=== PATIENT | female | born 1955 | race Caucasian/White ===

== ENCOUNTER 2019-07-15 08:47 | Inpatient (IN) ==
[2019-07-15] MEDS ORDERED: 0.9 % Sodium Chloride 1,000 ML IVC ONE (09:23)
[2019-07-15] MEDS ORDERED: Isovue-370 500 ML BOTTLE IVP ONE (09:23)
[2019-07-15] MEDS ORDERED: *HR* FentaNYL (PF) 100 MCG/2 ML VIAL IVP ONE (09:23)
[2019-07-15] MEDS ORDERED: MetroNIDAZOLE 500 MG/100 ML 500 MG/100 ML BAG IVPB ONE (09:24)
[2019-07-15 09:40] LABS: Basophils % 0.3 %; Eosinophils % 0.1 %; Immature Granulocytes % 0.5 % (0-4); Lymphocytes # 1.4 K/mcL (0.6-4.6); Lymphocytes % 11.8 %; Mean Corpuscular HGB Conc 34.7 g/dL (31.6-35.5); Mean Corpuscular Hemoglobin 31.7 pg (28.0-33.3); Mean Corpuscular Volume 91.3 fL (83.0-100.0); Mean Platelet Volume 9.4 fL (9.4-12.4); Monocytes # 0.9 K/mcL (0.0-1.3); Monocytes % 7.3 %; Neutrophils # 9.4 K/mcL (1.6-8.9); Platelet Count 284 K/mcL (140-400); Red Blood Count 5.15 M/mcL (3.82-4.97); Red Cell Distribution Width 12.6 % (11.5-14.5)
[2019-07-15 09:44] LABS: Hemoglobin 16.3 g/dL (11.5-15.4); White Blood Count 11.7 K/mcL (4.3-11.1)
[2019-07-15 10:18] LABS: Bilirubin,Urine Moderate (Negative); Blood,Urine Large (Negative); Clarity,Urine Cloudy (Clear); Color,Urine Dark Yellow (Yellow); Glucose,Urine (UA) Normal (Normal); Ketones,Urine 40 mg/dL (Negative); Leukocyte Esterase,Urine Negative (Negative); Nitrite,Urine Negative (Negative); PH,Urine 6.5 pH Units (5.0-8.0); Protein,Urine >=300 mg/dL (Neg-Trace); Specific Gravity,Urine 1.027 (1.010-1.025); Urobilinogen,Urine Normal (Normal)
[2019-07-15 10:38] LABS: Bacteria,Urine Few per hpf (None-Few)
[2019-07-15 10:39] LABS: Squamous Epithelial Cell,Urine Many per lpf (None-Few)
[2019-07-15 11:06] LABS: Alanine Aminotransferase 7 Units/L (7-52); Albumin 3.9 g/dL (3.5-5.7); Albumin/Globulin Ratio 1.4 (1.1-2.2); Alkaline Phosphatase 58 Units/L (34-104); Aspartate Amino Transferase 15 Units/L (13-39); BUN/Creatinine Ratio 21 (6-26); Bilirubin,Total 0.9 mg/dL (0.3-1.0); Blood Urea Nitrogen 16 mg/dL (8-23); Carbon Dioxide 25 mEq/L (23-29); Chloride 95 mEq/L (98-107); Globulin 2.7 g/dL (2.4-3.5); Glucose 113 mg/dL (70-105); Lipase 18 Units/L (11-82); Osmolality,Calculated 276 (280-300); Potassium 2.5 mEq/L (3.5-5.1); Sodium 132 mEq/L (136-145); Total Protein 6.6 g/dL (6.4-8.9); eGFR For African Americans > 60 (> 60); eGFR For Non-African Americans > 60 (> 60)
[2019-07-15] MEDS ORDERED: Potassium Chloride 40 MEQ, Lidocaine 1% 2 ML in 0.9 % Sodium Chloride 500 ML IVPB ONE (11:09)
[2019-07-15] MEDS ORDERED: Ondansetron 4 MG/2 ML VIAL IVP ONE (11:43)
[2019-07-15] MEDS ORDERED: Naloxone 0.4 MG/ML INJ IVP PRN (13:34)
[2019-07-15] MEDS ORDERED: *HR* LORazepam 0.5 MG TABLET PO PRN (13:37)
[2019-07-15] MEDS ORDERED: tiZANidine 4 MG TABLET PO PRN (13:37)
[2019-07-15] MEDS ORDERED: Pantoprazole 40 MG VIAL IVP ONE (13:39)
[2019-07-15 15:23] LABS: Magnesium 1.9 mg/dL (1.6-2.6)
[2019-07-15] MEDS: 0.9 % Sodium Chloride w KCl 40 MEQ/1,000 ML MLS IVC SCH (16:14)
[2019-07-15] MEDS: MetroNIDAZOLE 500 MG/100 ML 500 MG/100 ML BAG IVPB SCH (20:08)
[2019-07-15] MEDS: Gabapentin 300 MG CAPSULE PO SCH (21:15)
[2019-07-15] MEDS: Budesonide/Formoterol 160/4.5 1 PUFF INH IH SCH (21:45)
[2019-07-15] MEDS: traZODone 50 MG TABLET PO SCH (21:53)
[2019-07-15] MEDS: Famotidine 20 MG TABLET PO SCH (21:53)
[2019-07-15] MEDS: Sucralfate 1 GM TABLET PO SCH (21:53)
[2019-07-15] MEDS: Ondansetron 4 MG/2 ML VIAL IVP PRN (23:10)
[2019-07-16] MEDS: MetroNIDAZOLE 500 MG/100 ML 500 MG/100 ML BAG IVPB SCH ×4 (00:05→18:27)
[2019-07-16 05:12] LABS: Basophils % 0.1 %; Eosinophils % 0.1 %; Hematocrit 40.5 % (35.3-44.9); Immature Granulocytes % 0.4 % (0-4); Lymphocytes # 1.1 K/mcL (0.6-4.6); Lymphocytes % 13.9 %; Mean Corpuscular HGB Conc 33.8 g/dL (31.6-35.5); Mean Corpuscular Volume 91.6 fL (83.0-100.0); Mean Platelet Volume 9.6 fL (9.4-12.4); Monocytes # 0.5 K/mcL (0.0-1.3); Monocytes % 6.6 %; Neutrophils # 6.3 K/mcL (1.6-8.9); Platelet Count 212 K/mcL (140-400); Red Blood Count 4.42 M/mcL (3.82-4.97); Red Cell Distribution Width 12.7 % (11.5-14.5); Segmented Neutrophils % 78.9 %; White Blood Count 7.9 K/mcL (4.3-11.1)
[2019-07-16] MEDS: 0.9 % Sodium Chloride w KCl 40 MEQ/1,000 ML MLS IVC SCH (05:14)
[2019-07-16] MEDS: Ondansetron 4 MG/2 ML VIAL IVP PRN (05:14)
[2019-07-16 05:19] LABS: Hemoglobin 13.7 g/dL (11.5-15.4)
[2019-07-16 05:33] LABS: BUN/Creatinine Ratio 18 (6-26); Blood Urea Nitrogen 11 mg/dL (8-23); Calcium 8.3 mg/dL (8.6-10.3); Carbon Dioxide 22 mEq/L (23-29); Chloride 100 mEq/L (98-107); Glucose 103 mg/dL (70-105); Osmolality,Calculated 274 (280-300); Potassium 3.1 mEq/L (3.5-5.1); Sodium 132 mEq/L (136-145); eGFR For African Americans > 60 (> 60); eGFR For Non-African Americans > 60 (> 60)
[2019-07-16] MEDS: *HR* Promethazine 25 MG/ML VIAL IVP PRN ×2 (08:56→20:50)
[2019-07-16] MEDS: *HR* LORazepam 2 MG/ML VIAL IVP PRN ×2 (08:56→20:50)
[2019-07-16 09:02] LABS: Alanine Aminotransferase 6 Units/L (7-52); Albumin 3.6 g/dL (3.5-5.7); Albumin/Globulin Ratio 1.6 (1.1-2.2); Alkaline Phosphatase 55 Units/L (34-104); Aspartate Amino Transferase 14 Units/L (13-39); Bilirubin,Direct 0.1 mg/dL (0.0-0.2); Bilirubin,Indirect 0.6 mg/dL (0.0-1.2); Bilirubin,Total 0.7 mg/dL (0.3-1.0); Globulin 2.3 g/dL (2.4-3.5); Total Protein 5.9 g/dL (6.4-8.9)
[2019-07-16] MEDS: Budesonide/Formoterol 160/4.5 1 PUFF INH IH SCH ×2 (09:56→21:54)
[2019-07-16] MEDS ORDERED: Tiotropium 18 MCG inhalation IH SCH (10:00)
[2019-07-16] MEDS: Sucralfate 1 GM TABLET PO SCH ×2 (13:02→20:40)
[2019-07-16] MEDS: Gabapentin 300 MG CAPSULE PO SCH ×3 (13:02→20:39)
[2019-07-16] MEDS: BuPROPion XL (24 HR) 150 MG TABLET PO SCH (13:03)
[2019-07-16] MEDS: Famotidine 20 MG TABLET PO SCH ×2 (13:03→20:41)
[2019-07-16] MEDS ORDERED: Potassium Chloride 40 MEQ, Lidocaine 1% 2 ML in 0.9 % Sodium Chloride 500 ML IVPB ONE (15:54)
[2019-07-16] MEDS: traZODone 50 MG TABLET PO SCH (20:39)
[2019-07-17] MEDS: MetroNIDAZOLE 500 MG/100 ML 500 MG/100 ML BAG IVPB SCH ×5 (00:37→23:10)
[2019-07-17] MEDS: *HR* LORazepam 2 MG/ML VIAL IVP PRN ×2 (06:20→21:07)
[2019-07-17 06:23] LABS: Hematocrit 39.9 % (35.3-44.9); Hemoglobin 13.2 g/dL (11.5-15.4); Mean Corpuscular HGB Conc 33.1 g/dL (31.6-35.5); Mean Corpuscular Hemoglobin 31.5 pg (28.0-33.3); Mean Corpuscular Volume 95.2 fL (83.0-100.0); Mean Platelet Volume 9.8 fL (9.4-12.4); Platelet Count 239 K/mcL (140-400); Red Blood Count 4.19 M/mcL (3.82-4.97); White Blood Count 6.6 K/mcL (4.3-11.1)
[2019-07-17 06:44] LABS: BUN/Creatinine Ratio 11 (6-26); Blood Urea Nitrogen 9 mg/dL (8-23); Calcium 8.9 mg/dL (8.6-10.3); Carbon Dioxide 26 mEq/L (23-29); Chloride 106 mEq/L (98-107); Glucose 100 mg/dL (70-105); Osmolality,Calculated 289 (280-300); Potassium 3.3 mEq/L (3.5-5.1); Sodium 140 mEq/L (136-145); eGFR For African Americans > 60 (> 60); eGFR For Non-African Americans > 60 (> 60)
[2019-07-17] MEDS: Budesonide/Formoterol 160/4.5 1 PUFF INH IH SCH ×2 (07:59→22:22)
[2019-07-17] MEDS: Tiotropium 18 MCG inhalation IH SCH (08:00)
[2019-07-17] MEDS: BuPROPion XL (24 HR) 150 MG TABLET PO SCH (09:57)
[2019-07-17] MEDS: Sucralfate 1 GM TABLET PO SCH ×2 (09:57→21:08)
[2019-07-17] MEDS: Famotidine 20 MG TABLET PO SCH (09:58)
[2019-07-17] MEDS: Gabapentin 300 MG CAPSULE PO SCH ×3 (09:58→21:08)
[2019-07-17] MEDS: *HR* OxyCODONE Immed Rel 5 MG TABLET PO PRN ×2 (10:39→17:03)
[2019-07-17] MEDS: *HR* Heparin 5,000 UNIT/ML VIAL SQ SCH (17:02)
[2019-07-17] MEDS: traZODone 50 MG TABLET PO SCH (21:07)
[2019-07-17] MEDS: Ondansetron 4 MG/2 ML VIAL IVP PRN (21:08)
[2019-07-18] MEDS ORDERED: 0.9 % Sodium Chloride 500 ML IVC ONE (00:32)
[2019-07-18 04:10] LABS: Hematocrit 35.5 % (35.3-44.9); Hemoglobin 11.5 g/dL (11.5-15.4); Mean Corpuscular HGB Conc 32.4 g/dL (31.6-35.5); Mean Corpuscular Hemoglobin 31.9 pg (28.0-33.3); Mean Corpuscular Volume 98.3 fL (83.0-100.0); Mean Platelet Volume 9.8 fL (9.4-12.4); Platelet Count 180 K/mcL (140-400); Red Blood Count 3.61 M/mcL (3.82-4.97); Red Cell Distribution Width 13.2 % (11.5-14.5); White Blood Count 4.8 K/mcL (4.3-11.1)
[2019-07-18 04:28] LABS: BUN/Creatinine Ratio 10 (6-26); Blood Urea Nitrogen 8 mg/dL (8-23); Calcium 8.3 mg/dL (8.6-10.3); Carbon Dioxide 23 mEq/L (23-29); Chloride 112 mEq/L (98-107); Glucose 114 mg/dL (70-105); Osmolality,Calculated 285 (280-300); Potassium 3.9 mEq/L (3.5-5.1); Sodium 138 mEq/L (136-145); eGFR For African Americans > 60 (> 60); eGFR For Non-African Americans > 60 (> 60)
[2019-07-18] MEDS: MetroNIDAZOLE 500 MG/100 ML 500 MG/100 ML BAG IVPB SCH (05:55)
[2019-07-18] MEDS: *HR* Heparin 5,000 UNIT/ML VIAL SQ SCH (05:55)
[2019-07-18] MEDS: Budesonide/Formoterol 160/4.5 1 PUFF INH IH SCH (07:40)
[2019-07-18] MEDS: Tiotropium 18 MCG inhalation IH SCH (07:40)
[2019-07-18] MEDS: Sucralfate 1 GM TABLET PO SCH (08:42)
[2019-07-18] MEDS: BuPROPion XL (24 HR) 150 MG TABLET PO SCH (08:43)
[2019-07-18] MEDS: Gabapentin 300 MG CAPSULE PO SCH (08:43)
[2019-07-18] MEDS: *HR* OxyCODONE Immed Rel 5 MG TABLET PO PRN (08:43)
[2019-07-18 10:49] VITALS: BP 103/65
== END 2019-07-18 11:46 | disposition home or self-care (01) | DRG 392 ==
LOC: 3ANU 08:47 → EMEROOARM 08:47 → SUATTDRO 13:10 → 3ANU 14:39
PROVIDERS: ADMIT Internal Medicine; ATTEND Internal Medicine

== ENCOUNTER 2020-10-13 13:42 | Observation (INO) ==
[2020-10-13 14:32] LABS: Basophils % 0.1 %; Eosinophils % 0.2 %; Hematocrit 42.2 % (35.3-44.9); Hemoglobin 14.4 g/dL (11.5-15.4); Immature Granulocytes % 0.6 % (0-4); Lymphocytes # 0.8 K/mcL (0.6-4.6); Lymphocytes % 6.4 %; Mean Corpuscular HGB Conc 34.1 g/dL (31.6-35.5); Mean Corpuscular Hemoglobin 31.8 pg (28.0-33.3); Mean Corpuscular Volume 93.2 fL (83.0-100.0); Mean Platelet Volume 9.3 fL (9.4-12.4); Monocytes # 0.5 K/mcL (0.0-1.3); Neutrophils # 10.6 K/mcL (1.6-8.9); Platelet Count 317 K/mcL (140-400); Red Blood Count 4.53 M/mcL (3.82-4.97); Red Cell Distribution Width 13.4 % (11.5-14.5); Segmented Neutrophils % 88.7 %
[2020-10-13 14:52] LABS: Alanine Aminotransferase 6 Units/L (7-52); Albumin 4.6 g/dL (3.5-5.7); Albumin/Globulin Ratio 1.4 (1.1-2.2); Alkaline Phosphatase 67 Units/L (34-104); Aspartate Amino Transferase 16 Units/L (13-39); BUN/Creatinine Ratio 20 (6-26); Bilirubin,Direct 0.2 mg/dL (0.0-0.2); Bilirubin,Indirect 0.5 mg/dL (0.0-1.0); Bilirubin,Total 0.7 mg/dL (0.3-1.0); Blood Urea Nitrogen 16 mg/dL (8-23); Calcium 10.2 mg/dL (8.6-10.3); Carbon Dioxide 24 mEq/L (23-29); Chloride 96 mEq/L (98-107); Globulin 3.2 g/dL (2.4-3.5); Glucose 153 mg/dL (70-105); Lipase 9 Units/L (11-82); Osmolality,Calculated 284 (280-300); Potassium 3.2 mEq/L (3.5-5.1); Sodium 135 mEq/L (136-145); Total Protein 7.8 g/dL (6.4-8.9); eGFR For African Americans > 60 (> 60); eGFR For Non-African Americans > 60 (> 60)
[2020-10-13 15:33] LABS: Bacteria,Urine Few per hpf (None-Few); Bilirubin,Urine Negative (Negative); Blood,Urine Moderate (Negative); Clarity,Urine Turbid (Clear); Color,Urine Yellow (Yellow); Glucose,Urine (UA) Normal (Normal); Hyaline Casts,Urine Few per lpf (None Seen); Ketones,Urine 40 mg/dL (Negative); Leukocyte Esterase,Urine Negative (Negative); Mucus,Urine Few per lpf (None-Few); Nitrite,Urine Negative (Negative); PH,Urine 8.5 pH Units (5.0-8.0); Protein,Urine >=600 mg/dL (Neg-Trace); RBC,Urine TNTC per hpf (0-3); Specific Gravity,Urine 1.025 (1.010-1.025); Squamous Epithelial Cell,Urine Moderate per hpf (None-Few); Urobilinogen,Urine Normal (Normal)
[2020-10-13] MEDS ORDERED: Famotidine 20 MG/2 ML VIAL IVP ONE (16:14)
[2020-10-13] MEDS ORDERED: Ondansetron 4 MG/2 ML VIAL IVP ONE (16:14)
[2020-10-13] MEDS ORDERED: 0.9 % Sodium Chloride 1,000 ML IVC ONE (16:14)
[2020-10-13 16:43] LABS: Troponin I 0.06 ng/mL (< 0.04)
[2020-10-13] MEDS ORDERED: *HR* FentaNYL (PF) 100 MCG/2 ML VIAL IVP ONE (19:54)
[2020-10-13] MEDS ORDERED: Aspirin 81 MG TAB.CHEW PO ONE (20:41)
[2020-10-13] MEDS ORDERED: MetroNIDAZOLE 500 MG/100 ML 500 MG/100 ML BAG IVPB ONE (20:44)
[2020-10-13] MEDS ORDERED: Morphine Sulfate 2 MG/ML SYRINGE IVP ONE (22:19)
[2020-10-13] MEDS ORDERED: Naloxone 0.4 MG/ML INJ IVP PRN (22:23)
[2020-10-13] MEDS ORDERED: 0.9 % Sodium Chloride 1,000 ML IVC SCH (22:30)
[2020-10-13] MEDS ORDERED: Potassium Chloride 20 MEQ, Lidocaine 1% 2 ML in 0.9 % Sodium Chloride 250 ML IVPB ONE (23:00)
[2020-10-14] MEDS: Ondansetron 4 MG/2 ML VIAL IVP PRN ×2 (00:05→08:37)
[2020-10-14] MEDS ORDERED: Pantoprazole 80 MG in 0.9 % Sodium Chloride 50 ML IVPB ONE (01:22)
[2020-10-14 02:47] LABS: Hematocrit 38.2 % (35.3-44.9); Hemoglobin 12.9 g/dL (11.5-15.4); Mean Corpuscular HGB Conc 33.8 g/dL (31.6-35.5); Mean Corpuscular Hemoglobin 32.3 pg (28.0-33.3); Mean Corpuscular Volume 95.7 fL (83.0-100.0); Mean Platelet Volume 9.3 fL (9.4-12.4); Platelet Count 279 K/mcL (140-400); Red Blood Count 3.99 M/mcL (3.82-4.97); Red Cell Distribution Width 13.8 % (11.5-14.5)
[2020-10-14 03:07] LABS: BUN/Creatinine Ratio 19 (6-26); Blood Urea Nitrogen 14 mg/dL (8-23); Calcium 8.7 mg/dL (8.6-10.3); Carbon Dioxide 24 mEq/L (23-29); Chloride 104 mEq/L (98-107); Glucose 109 mg/dL (70-105); Osmolality,Calculated 285 (280-300); Potassium 3.2 mEq/L (3.5-5.1); Sodium 137 mEq/L (136-145); eGFR For African Americans > 60 (> 60); eGFR For Non-African Americans > 60 (> 60)
[2020-10-14] MEDS ORDERED: Potassium Chloride 40 MEQ, Lidocaine 1% 2 ML in 0.9 % Sodium Chloride 500 ML IVPB ONE (07:59)
[2020-10-14] MEDS: MetroNIDAZOLE 500 MG/100 ML 500 MG/100 ML BAG IVPB SCH ×2 (08:34→16:58)
[2020-10-14] MEDS: Pantoprazole 40 MG VIAL IVP SCH ×2 (08:35→16:57)
[2020-10-14] MEDS ORDERED: tiZANidine 4 MG TABLET PO PRN (15:02)
[2020-10-14] MEDS: Budesonide/Formoterol 160/4.5 1 PUFF INH IH SCH (19:59)
[2020-10-14] MEDS ORDERED: Famotidine 20 MG/2 ML VIAL IVP SCH (21:00)
[2020-10-14] MEDS ORDERED: Famotidine 20 MG TABLET PO SCH (21:00)
[2020-10-14] MEDS ORDERED: NON-FORMULARY MEDICATION 1 EACH EACH (Pantoprazole Sodium 40 MG) PO SCH (21:00)
[2020-10-14] MEDS ORDERED: traZODone 50 MG TABLET PO SCH (21:00)
[2020-10-14] MEDS: Gabapentin 300 MG CAPSULE PO SCH (21:17)
[2020-10-15] MEDS: MetroNIDAZOLE 500 MG/100 ML 500 MG/100 ML BAG IVPB SCH ×2 (00:40→10:13)
[2020-10-15] MEDS: Pantoprazole 40 MG VIAL IVP SCH (05:30)
[2020-10-15 07:43] LABS: Basophils % 0.4 %; Eosinophils % 0.2 %; Hematocrit 36.4 % (35.3-44.9); Hemoglobin 12.4 g/dL (11.5-15.4); Immature Granulocytes % 0.2 % (0-4); Lymphocytes # 1.3 K/mcL (0.6-4.6); Lymphocytes % 22.3 %; Mean Corpuscular HGB Conc 34.1 g/dL (31.6-35.5); Mean Corpuscular Hemoglobin 32.8 pg (28.0-33.3); Mean Corpuscular Volume 96.3 fL (83.0-100.0); Mean Platelet Volume 9.3 fL (9.4-12.4); Monocytes # 0.4 K/mcL (0.0-1.3); Monocytes % 7.9 %; Neutrophils # 3.9 K/mcL (1.6-8.9); Platelet Count 240 K/mcL (140-400); Red Blood Count 3.78 M/mcL (3.82-4.97); Red Cell Distribution Width 13.7 % (11.5-14.5)
[2020-10-15 07:49] LABS: White Blood Count 5.6 K/mcL (4.3-11.1)
[2020-10-15 07:53] VITALS: BP 125/63
[2020-10-15 07:57] LABS: BUN/Creatinine Ratio 13 (6-26); Blood Urea Nitrogen 10 mg/dL (8-23); Calcium 8.8 mg/dL (8.6-10.3); Carbon Dioxide 21 mEq/L (23-29); Chloride 105 mEq/L (98-107); Glucose 93 mg/dL (70-105); Osmolality,Calculated 281 (280-300); Potassium 3.1 mEq/L (3.5-5.1); Sodium 136 mEq/L (136-145); eGFR For African Americans > 60 (> 60); eGFR For Non-African Americans > 60 (> 60)
[2020-10-15] MEDS: Budesonide/Formoterol 160/4.5 1 PUFF INH IH SCH (08:29)
[2020-10-15] MEDS ORDERED: Tiotropium 10 INH DOSE IH SCH (09:00)
[2020-10-15] MEDS ORDERED: BuPROPion XL (24 HR) 150 MG TABLET PO SCH (09:00)
[2020-10-15] MEDS: Gabapentin 300 MG CAPSULE PO SCH ×2 (10:14→10:21)
== END 2020-10-15 12:34 | disposition home or self-care (01) ==
LOC: EMEROOARM 13:42 → 3ANU 13:42 → SUATTDRO 22:19 → 3ANU 22:25
PROVIDERS: ADMIT Internal Medicine; ATTEND Family Medicine
PROC: ENDOEBX (2020-10-14 13:30)

== ENCOUNTER 2022-03-14 14:41 | Observation (INO) ==
[2022-03-14 15:52] LABS: Bacteria,Urine Few per hpf (None-Few); Bilirubin,Urine Negative (Negative); Blood,Urine Moderate (Negative); Clarity,Urine Clear (Clear); Color,Urine Yellow (Yellow); Glucose,Urine (UA) Normal (Normal); Ketones,Urine Negative (Negative); Leukocyte Esterase,Urine Negative (Negative); Nitrite,Urine Negative (Negative); Protein,Urine Trace mg/dL (Neg-Trace); Specific Gravity,Urine 1.012 (1.010-1.025); Squamous Epithelial Cell,Urine Moderate per hpf (None-Few); Urobilinogen,Urine Normal (Normal); WBC,Urine 0-3 per hpf (0-3)
[2022-03-14 15:53] LABS: Basophils % 0.1 %; Eosinophils % 0.1 %; Hematocrit 43.5 % (35.3-44.9); Hemoglobin 15.4 g/dL (11.5-15.4); Immature Granulocytes % 0.5 % (0-4); Lymphocytes # 1.2 K/mcL (0.6-4.6); Lymphocytes % 10.9 %; Mean Corpuscular HGB Conc 35.4 g/dL (31.6-35.5); Mean Corpuscular Hemoglobin 31.4 pg (28.0-33.3); Mean Corpuscular Volume 88.8 fL (83.0-100.0); Mean Platelet Volume 9.1 fL (9.4-12.4); Monocytes # 0.6 K/mcL (0.0-1.3); Monocytes % 5.3 %; Neutrophils # 9.1 K/mcL (1.6-8.9); Platelet Count 380 K/mcL (140-400); Red Cell Distribution Width 12.3 % (11.5-14.5); Segmented Neutrophils % 83.1 %
[2022-03-14 16:19] LABS: BUN/Creatinine Ratio 10 (6-26); Blood Urea Nitrogen 8 mg/dL (8-23); Calcium 9.3 mg/dL (8.6-10.3); Carbon Dioxide 31 mEq/L (23-29); Chloride 90 mEq/L (98-107); Glucose 116 mg/dL (70-105); Osmolality,Calculated 271 (280-300); Potassium 2.3 mEq/L (3.5-5.1); Sodium 131 mEq/L (136-145); eGFR For African Americans > 60 (> 60); eGFR For Non-African Americans > 60 (> 60)
[2022-03-14] MEDS ORDERED: Ondansetron 4 MG/2 ML VIAL IVP ONE (18:27)
[2022-03-14] MEDS ORDERED: Morphine Sulfate 2 MG/ML SYRINGE IVP ONE (18:27)
[2022-03-14] MEDS ORDERED: Iopamidol - 370 500 ML MLS IVP ONE (18:42)
[2022-03-14] MEDS ORDERED: 0.9 % Sodium Chloride 500 ML IVC ONE (18:45)
[2022-03-14] MEDS ORDERED: Melatonin 3 MG TABLET PO PRN (20:41)
[2022-03-14] MEDS ORDERED: *HR* HYDROcodone/Acet 5/325 mg TABLET PO PRN (20:41)
[2022-03-14] MEDS ORDERED: Naloxone 0.4 MG/ML INJ IVP PRN (20:41)
[2022-03-14] MEDS ORDERED: Pantoprazole 40 MG VIAL IVP ONE (21:19)
[2022-03-14] MEDS ORDERED: *HR* Dextrose 50 % in Water (Syg) 50 ML SYRINGE IVP PRN (21:33)
[2022-03-14] MEDS ORDERED: D5% in Water 1,000 ML IVC PRN (21:33)
[2022-03-14] MEDS ORDERED: Dextrose Gel 15 GM/37.5 ML TUBE PO PRN ×2 (21:33)
[2022-03-14] MEDS: 0.9 % Sodium Chloride w KCl 20 MEQ/1,000 ML MLS IVC SCH (22:08)
[2022-03-14] MEDS: Budesonide/Formoterol 160/4.5 1 PUFF INH IH SCH (23:47)
[2022-03-14] MEDS: Ipratropium/Albuterol Neb 3 ML IH SCH (23:48)
[2022-03-15] MEDS: Ipratropium/Albuterol Neb 3 ML IH SCH ×5 (04:17→20:12)
[2022-03-15 05:04] LABS: Basophils % 0.1 %; Eosinophils % 0.3 %; Hematocrit 38.6 % (35.3-44.9); Immature Granulocytes % 0.3 % (0-4); Lymphocytes # 1.9 K/mcL (0.6-4.6); Lymphocytes % 21.9 %; Mean Corpuscular HGB Conc 33.9 g/dL (31.6-35.5); Mean Corpuscular Hemoglobin 30.9 pg (28.0-33.3); Mean Platelet Volume 9.2 fL (9.4-12.4); Monocytes # 0.5 K/mcL (0.0-1.3); Monocytes % 5.8 %; Neutrophils # 6.2 K/mcL (1.6-8.9); Platelet Count 298 K/mcL (140-400); Red Blood Count 4.24 M/mcL (3.82-4.97); Red Cell Distribution Width 12.6 % (11.5-14.5); Segmented Neutrophils % 71.6 %; White Blood Count 8.7 K/mcL (4.3-11.1)
[2022-03-15 05:05] LABS: Hemoglobin 13.1 g/dL (11.5-15.4)
[2022-03-15 05:08] LABS: INR 1.1; Prothrombin Time 11.9 Seconds (9.4-12.1)
[2022-03-15 05:11] LABS: Activated Partial Thrombo Time 28.7 Seconds (26.0-36.0)
[2022-03-15 05:19] LABS: Alanine Aminotransferase 14 Units/L (7-52); Albumin 3.4 g/dL (3.5-5.7); Albumin/Globulin Ratio 1.6 (1.1-2.2); Alkaline Phosphatase 51 Units/L (34-104); Aspartate Amino Transferase 29 Units/L (13-39); BUN/Creatinine Ratio 9 (6-26); Bilirubin,Total 0.6 mg/dL (0.3-1.0); Blood Urea Nitrogen 8 mg/dL (8-23); Calcium 8.6 mg/dL (8.6-10.3); Carbon Dioxide 31 mEq/L (23-29); Chloride 94 mEq/L (98-107); Globulin 2.1 g/dL (2.4-3.5); Glucose 104 mg/dL (70-105); Magnesium 2.2 mg/dL (1.6-2.6); Osmolality,Calculated 273 (280-300); Phosphorous 2.4 mg/dL (2.7-4.5); Potassium 2.8 mEq/L (3.5-5.1); Sodium 132 mEq/L (136-145); Total Protein 5.5 g/dL (6.4-8.9); eGFR For African Americans > 60 (> 60); eGFR For Non-African Americans > 60 (> 60)
[2022-03-15] MEDS ORDERED: Potassium Chloride Elixir 20 MEQ/15 ML UDC PO ONE (05:48)
[2022-03-15] MEDS: *HR* Enoxaparin 40 MG/0.4 ML SYRINGE SQ SCH (05:58)
[2022-03-15] MEDS: Budesonide/Formoterol 160/4.5 1 PUFF INH IH SCH ×2 (07:30→20:12)
[2022-03-15] MEDS: polyethylene glycoL 3350 17 GM POWD.PACK PO SCH (08:34)
[2022-03-15] MEDS: Nicotine 21 MG PATCH.TD24 TD SCH (08:35)
[2022-03-15] MEDS: BuPROPion XL (24 HR) 150 MG TABLET PO SCH (08:36)
[2022-03-15] MEDS: Sennosides/Docusate Sodium TABLET PO SCH ×2 (08:36→20:06)
[2022-03-15] MEDS: Acetaminophen 325 MG TABLET PO PRN ×2 (09:00→20:06)
[2022-03-15] MEDS: Ondansetron 4 MG/2 ML VIAL IVP PRN ×2 (09:01→20:06)
[2022-03-15 10:36] LABS: Troponin I < 0.03 ng/mL (< 0.04)
[2022-03-15] MEDS: 0.9 % Sodium Chloride w KCl 20 MEQ/1,000 ML MLS IVC SCH (10:54)
[2022-03-15 11:54] LABS: Amphetamine Screen,Urine Negative ng/mL (Cutoff=1000); Barbiturate Screen,Urine Negative ng/mL (Cutoff=200); Benzodiazepines Screen,Urine Negative ng/mL (Cutoff=200); Cannabinoid Screen,Urine Positive ng/mL (Cutoff = 50); Cocaine Screen,Urine Negative ng/mL (Cutoff= 300); Opiate Screen,Urine Negative ng/mL (Cutoff=300); Phencyclidine Screen,Urine Negative ng/mL (Cutoff=25)
[2022-03-15] MEDS ORDERED: Ipratropium/Albuterol Neb 3 ML IH PRN (20:48)
[2022-03-16] MEDS: Ondansetron 4 MG/2 ML VIAL IVP PRN ×3 (03:36→20:04)
[2022-03-16] MEDS ORDERED: Prochlorperazine 10 MG/2 ML VIAL IVP ONE (03:45)
[2022-03-16] MEDS: *HR* Enoxaparin 40 MG/0.4 ML SYRINGE SQ SCH (05:57)
[2022-03-16 07:00] LABS: Basophils % 0.2 %; Eosinophils % 0.3 %; Hematocrit 39.7 % (35.3-44.9); Hemoglobin 13.3 g/dL (11.5-15.4); Immature Granulocytes % 0.6 % (0-4); Lymphocytes # 1.3 K/mcL (0.6-4.6); Lymphocytes % 13.7 %; Mean Corpuscular HGB Conc 33.5 g/dL (31.6-35.5); Mean Corpuscular Hemoglobin 31.2 pg (28.0-33.3); Mean Corpuscular Volume 93.2 fL (83.0-100.0); Mean Platelet Volume 9.3 fL (9.4-12.4); Monocytes # 0.6 K/mcL (0.0-1.3); Monocytes % 6.7 %; Neutrophils # 7.4 K/mcL (1.6-8.9); Platelet Count 322 K/mcL (140-400); Red Blood Count 4.26 M/mcL (3.82-4.97); Red Cell Distribution Width 13.2 % (11.5-14.5); Segmented Neutrophils % 78.5 %; White Blood Count 9.4 K/mcL (4.3-11.1)
[2022-03-16] MEDS: BuPROPion XL (24 HR) 150 MG TABLET PO SCH (07:43)
[2022-03-16] MEDS: Acetaminophen 325 MG TABLET PO PRN (07:43)
[2022-03-16] MEDS: Sennosides/Docusate Sodium TABLET PO SCH ×2 (07:43→22:09)
[2022-03-16] MEDS: Nicotine 21 MG PATCH.TD24 TD SCH (07:44)
[2022-03-16] MEDS: polyethylene glycoL 3350 17 GM POWD.PACK PO SCH (07:44)
[2022-03-16 07:45] LABS: BUN/Creatinine Ratio 6 (6-26); Blood Urea Nitrogen 5 mg/dL (8-23); Calcium 8.8 mg/dL (8.6-10.3); Carbon Dioxide 23 mEq/L (23-29); Chloride 103 mEq/L (98-107); Glucose 109 mg/dL (70-105); Osmolality,Calculated 276 (280-300); Potassium 3.6 mEq/L (3.5-5.1); Sodium 134 mEq/L (136-145); eGFR For African Americans > 60 (> 60); eGFR For Non-African Americans > 60 (> 60)
[2022-03-16] MEDS: Budesonide/Formoterol 160/4.5 1 PUFF INH IH SCH ×2 (08:00→19:57)
[2022-03-16] MEDS ORDERED: Morphine Sulfate 2 MG/ML SYRINGE IVP ONE (14:08)
[2022-03-16] MEDS ORDERED: *HR* Metoprolol 5 MG/5 ML VIAL IVP ONE (20:25)
[2022-03-16] MEDS: traZODone 50 MG TABLET PO SCH (22:09)
[2022-03-16] MEDS ORDERED: Prochlorperazine 10 MG/2 ML VIAL IVP PRN (23:08)
[2022-03-17] MEDS: *HR* Enoxaparin 40 MG/0.4 ML SYRINGE SQ SCH (05:11)
[2022-03-17] MEDS: Budesonide/Formoterol 160/4.5 1 PUFF INH IH SCH ×2 (07:58→19:48)
[2022-03-17] MEDS: polyethylene glycoL 3350 17 GM POWD.PACK PO SCH (08:56)
[2022-03-17] MEDS: Sennosides/Docusate Sodium TABLET PO SCH ×2 (08:57→20:51)
[2022-03-17] MEDS: BuPROPion XL (24 HR) 150 MG TABLET PO SCH (08:57)
[2022-03-17] MEDS: Acetaminophen 325 MG TABLET PO PRN ×2 (09:07→20:55)
[2022-03-17] MEDS: Ondansetron 4 MG/2 ML VIAL IVP PRN ×2 (09:08→20:51)
[2022-03-17] MEDS: Nicotine 21 MG PATCH.TD24 TD SCH (09:20)
[2022-03-17] MEDS: traZODone 50 MG TABLET PO SCH (20:51)
[2022-03-18] MEDS: *HR* Enoxaparin 40 MG/0.4 ML SYRINGE SQ SCH (06:04)
[2022-03-18] MEDS: Sennosides/Docusate Sodium TABLET PO SCH (08:10)
[2022-03-18] MEDS: polyethylene glycoL 3350 17 GM POWD.PACK PO SCH (08:10)
[2022-03-18] MEDS: Nicotine 21 MG PATCH.TD24 TD SCH (08:10)
[2022-03-18] MEDS: Ondansetron 4 MG/2 ML VIAL IVP PRN (08:11)
[2022-03-18] MEDS: BuPROPion XL (24 HR) 150 MG TABLET PO SCH (08:13)
[2022-03-18] MEDS: Acetaminophen 325 MG TABLET PO PRN (09:42)
[2022-03-18] MEDS ORDERED: Simethicone 80 MG TAB.CHEW PO PRN (09:47)
[2022-03-18] MEDS: Budesonide/Formoterol 160/4.5 1 PUFF INH IH SCH (10:24)
[2022-03-18 10:52] VITALS: BP 183/96; PULSE 99; TEMP 97.5; O2SAT 96
== END 2022-03-18 13:37 | disposition home or self-care (01) ==
LOC: 3BNU 14:41 → EMEROOARM 14:41 → SUATTDRO 20:39 → 3BNU 21:28
PROVIDERS: ADMIT Internal Medicine; ATTEND Nurse Practitioner

== ENCOUNTER 2022-05-23 11:29 | Inpatient (IN) ==
[2022-05-23] MEDS ORDERED: Iopamidol - 370 500 ML MLS IVP ONE (12:52)
[2022-05-23] MEDS ORDERED: Naloxone 0.4 MG/ML INJ IVP PRN (12:52)
[2022-05-23] MEDS: 0.9 % Sodium Chloride 1,000 ML IVC SCH (13:31)
[2022-05-23] MEDS: Gabapentin 300 MG CAPSULE PO SCH ×2 (13:37→20:23)
[2022-05-23 14:28] LABS: Basophils % 0.1 %; Hematocrit 40.9 % (35.3-44.9); Hemoglobin 14.1 g/dL (11.5-15.4); Immature Granulocytes % 0.5 % (0-4); Lymphocytes # 1.5 K/mcL (0.6-4.6); Lymphocytes % 8.4 %; Mean Corpuscular HGB Conc 34.5 g/dL (31.6-35.5); Mean Corpuscular Hemoglobin 29.9 pg (28.0-33.3); Mean Corpuscular Volume 86.8 fL (83.0-100.0); Mean Platelet Volume 9.9 fL (9.4-12.4); Monocytes % 5.5 %; Neutrophils # 15.1 K/mcL (1.6-8.9); Platelet Count 354 K/mcL (140-400); Red Blood Count 4.71 M/mcL (3.82-4.97); Red Cell Distribution Width 13.3 % (11.5-14.5); Segmented Neutrophils % 85.5 %; White Blood Count 17.6 K/mcL (4.3-11.1)
[2022-05-23 14:37] LABS: INR 1.1; Prothrombin Time 11.8 Seconds (9.4-12.1)
[2022-05-23] MEDS: Mag Hydrox/Al Hydrox/Simeth 30 ML UDC PO PRN (14:44)
[2022-05-23] MEDS: Ondansetron ODT 4 MG TAB.RAPDIS SL PRN (14:44)
[2022-05-23] MEDS ORDERED: IOPAMIDOL PO ONE (16:52)
[2022-05-23] MEDS: Pantoprazole 40 MG VIAL IVP SCH (17:13)
[2022-05-23] MEDS: Piperacillin/Tazobactam 3.375 GM in 0.9 % Sodium Chloride Mini Bag 100 ML IVPB SCH (17:13)
[2022-05-23 17:32] LABS: Albumin 3.5 g/dL (3.5-5.7); Albumin/Globulin Ratio 1.3 (1.1-2.2); Bilirubin,Total 0.9 mg/dL (0.3-1.0); Calcium 8.8 mg/dL (8.6-10.3); Globulin 2.6 g/dL (2.4-3.5); Magnesium 1.7 mg/dL (1.6-2.6); Phosphorous 3.1 mg/dL (2.7-4.5); Potassium 2.8 mEq/L (3.5-5.1); Total Protein 6.1 g/dL (6.4-8.9)
[2022-05-23] MEDS: traZODone 50 MG TABLET PO SCH (20:23)
[2022-05-23] MEDS: Budesonide/Formoterol 160/4.5 1 PUFF INH IH SCH (23:00)
[2022-05-24] MEDS: Piperacillin/Tazobactam 3.375 GM in 0.9 % Sodium Chloride Mini Bag 100 ML IVPB SCH ×3 (03:15→15:09)
[2022-05-24] MEDS: Ondansetron ODT 4 MG TAB.RAPDIS SL PRN (03:32)
[2022-05-24] MEDS: *HR* Enoxaparin 40 MG/0.4 ML SYRINGE SQ SCH (05:50)
[2022-05-24] MEDS: Pantoprazole 40 MG VIAL IVP SCH ×2 (05:50→17:52)
[2022-05-24 07:25] LABS: Basophils % 0.1 %; Hemoglobin 12.7 g/dL (11.5-15.4); Immature Granulocytes % 0.4 % (0-4); Lymphocytes # 1.1 K/mcL (0.6-4.6); Lymphocytes % 11.8 %; Mean Corpuscular HGB Conc 34.3 g/dL (31.6-35.5); Mean Corpuscular Hemoglobin 30.2 pg (28.0-33.3); Mean Corpuscular Volume 87.9 fL (83.0-100.0); Mean Platelet Volume 9.2 fL (9.4-12.4); Monocytes # 0.7 K/mcL (0.0-1.3); Monocytes % 7.2 %; Neutrophils # 7.7 K/mcL (1.6-8.9); Platelet Count 275 K/mcL (140-400); Red Blood Count 4.21 M/mcL (3.82-4.97); Red Cell Distribution Width 13.3 % (11.5-14.5); Segmented Neutrophils % 80.5 %; White Blood Count 9.5 K/mcL (4.3-11.1)
[2022-05-24] MEDS: 0.9 % Sodium Chloride 1,000 ML IVC SCH (08:06)
[2022-05-24] MEDS: Gabapentin 300 MG CAPSULE PO SCH ×3 (08:14→20:19)
[2022-05-24] MEDS: BuPROPion XL (24 HR) 150 MG TABLET PO SCH (08:14)
[2022-05-24 08:21] LABS: Calcium 8.3 mg/dL (8.6-10.3); Magnesium 1.8 mg/dL (1.6-2.6); Phosphorous 3.3 mg/dL (2.7-4.5); Potassium 2.8 mEq/L (3.5-5.1)
[2022-05-24] MEDS: Budesonide/Formoterol 160/4.5 1 PUFF INH IH SCH ×2 (09:25→21:36)
[2022-05-24] MEDS: traZODone 50 MG TABLET PO SCH (20:19)
[2022-05-25 01:09] LABS: Basophils % 0.1 %; Eosinophils % 0.5 %; Hematocrit 33.1 % (35.3-44.9); Immature Granulocytes % 0.7 % (0-4); Lymphocytes # 1.6 K/mcL (0.6-4.6); Lymphocytes % 19.4 %; Mean Corpuscular HGB Conc 33.5 g/dL (31.6-35.5); Mean Corpuscular Hemoglobin 29.9 pg (28.0-33.3); Mean Corpuscular Volume 89.2 fL (83.0-100.0); Mean Platelet Volume 9.3 fL (9.4-12.4); Monocytes # 0.8 K/mcL (0.0-1.3); Monocytes % 10.4 %; Neutrophils # 5.5 K/mcL (1.6-8.9); Platelet Count 265 K/mcL (140-400); Red Blood Count 3.71 M/mcL (3.82-4.97); Red Cell Distribution Width 13.4 % (11.5-14.5); Segmented Neutrophils % 68.9 %
[2022-05-25 01:12] LABS: Hemoglobin 11.1 g/dL (11.5-15.4)
[2022-05-25] MEDS: Piperacillin/Tazobactam 3.375 GM in 0.9 % Sodium Chloride Mini Bag 100 ML IVPB SCH ×4 (01:15→23:37)
[2022-05-25 01:28] LABS: Calcium 8.1 mg/dL (8.6-10.3); Magnesium 1.9 mg/dL (1.6-2.6); Phosphorous 3.2 mg/dL (2.7-4.5); Potassium 2.9 mEq/L (3.5-5.1)
[2022-05-25] MEDS: Pantoprazole 40 MG VIAL IVP SCH ×2 (05:20→17:21)
[2022-05-25] MEDS: Ondansetron ODT 4 MG TAB.RAPDIS SL PRN ×3 (05:20→22:23)
[2022-05-25] MEDS: *HR* Enoxaparin 40 MG/0.4 ML SYRINGE SQ SCH (05:21)
[2022-05-25] MEDS: BuPROPion XL (24 HR) 150 MG TABLET PO SCH (07:23)
[2022-05-25] MEDS: Gabapentin 300 MG CAPSULE PO SCH ×3 (07:23→19:51)
[2022-05-25] MEDS: Budesonide/Formoterol 160/4.5 1 PUFF INH IH SCH ×2 (10:31→21:02)
[2022-05-25] MEDS ORDERED: Iopamidol - 370 500 ML MLS IVP ONE (11:19)
[2022-05-25] MEDS: traZODone 50 MG TABLET PO SCH (19:51)
[2022-05-26] MEDS ORDERED: D5% in 0.45% NACL w KCl 20 MEQ/1,000 ML MLS IVC SCH (00:01)
[2022-05-26 03:04] LABS: Basophils % 0.4 %; Eosinophils # 0.1 K/mcL (0.0-0.6); Eosinophils % 1.3 %; Hematocrit 33.6 % (35.3-44.9); Hemoglobin 11.1 g/dL (11.5-15.4); Immature Granulocytes % 1.4 % (0-4); Lymphocytes # 1.8 K/mcL (0.6-4.6); Lymphocytes % 23.2 %; Mean Corpuscular Hemoglobin 29.8 pg (28.0-33.3); Mean Corpuscular Volume 90.3 fL (83.0-100.0); Mean Platelet Volume 9.3 fL (9.4-12.4); Monocytes # 0.7 K/mcL (0.0-1.3); Monocytes % 9.5 %; Neutrophils # 4.9 K/mcL (1.6-8.9); Platelet Count 305 K/mcL (140-400); Red Blood Count 3.72 M/mcL (3.82-4.97); Red Cell Distribution Width 13.2 % (11.5-14.5); Segmented Neutrophils % 64.2 %; White Blood Count 7.7 K/mcL (4.3-11.1)
[2022-05-26 03:27] LABS: Calcium 8.1 mg/dL (8.6-10.3); Magnesium 1.8 mg/dL (1.6-2.6); Phosphorous 3.1 mg/dL (2.7-4.5); Potassium 2.5 mEq/L (3.5-5.1)
[2022-05-26] MEDS: Pantoprazole 40 MG VIAL IVP SCH ×2 (04:35→16:13)
[2022-05-26] MEDS: *HR* Enoxaparin 40 MG/0.4 ML SYRINGE SQ SCH (04:35)
[2022-05-26] MEDS: 0.9 % Sodium Chloride w KCl 40 MEQ/1,000 ML MLS IVC SCH ×2 (04:35→08:06)
[2022-05-26] MEDS: Calcium Gluconate 1gm/50mL 1 GM/50 ML BAG IVPB SCH ×2 (06:59→08:04)
[2022-05-26] MEDS: Gabapentin 300 MG CAPSULE PO SCH ×3 (08:03→19:32)
[2022-05-26] MEDS: BuPROPion XL (24 HR) 150 MG TABLET PO SCH (08:03)
[2022-05-26] MEDS: Piperacillin/Tazobactam 3.375 GM in 0.9 % Sodium Chloride Mini Bag 100 ML IVPB SCH (08:06)
[2022-05-26] MEDS: Ondansetron ODT 4 MG TAB.RAPDIS SL PRN ×2 (08:51→19:41)
[2022-05-26] MEDS: Budesonide/Formoterol 160/4.5 1 PUFF INH IH SCH ×2 (09:58→22:43)
[2022-05-26] MEDS ORDERED: Simethicone 40 MG/0.6 ML MLS IR ONE (10:09)
[2022-05-26] MEDS ORDERED: Lidocaine -MPF 2% 5 ML VIAL ONE (11:33)
[2022-05-26] MEDS ORDERED: *HR* Propofol 200 MG/20 ML VIAL IVP ONE ×2 (11:33→11:53)
[2022-05-26] MEDS ORDERED: Ondansetron 4 MG/2 ML VIAL ONE (11:33)
[2022-05-26] MEDS: traZODone 50 MG TABLET PO SCH (19:33)
[2022-05-26] MEDS: Mag Hydrox/Al Hydrox/Simeth 30 ML UDC PO PRN (19:42)
[2022-05-27] MEDS: Ondansetron ODT 4 MG TAB.RAPDIS SL PRN (03:38)
[2022-05-27] MEDS: *HR* Enoxaparin 40 MG/0.4 ML SYRINGE SQ SCH (05:19)
[2022-05-27] MEDS: Pantoprazole 40 MG VIAL IVP SCH (05:20)
[2022-05-27 07:24] VITALS: BP 105/63; PULSE 75; TEMP 98.3; O2SAT 96
[2022-05-27] MEDS: Gabapentin 300 MG CAPSULE PO SCH (07:31)
[2022-05-27] MEDS: BuPROPion XL (24 HR) 150 MG TABLET PO SCH (07:31)
[2022-05-27 10:14] LABS: Calcium 8.6 mg/dL (8.6-10.3); Potassium 4.9 mEq/L (3.5-5.1)
[2022-05-27] MEDS: Budesonide/Formoterol 160/4.5 1 PUFF INH IH SCH (10:31)
== END 2022-05-27 11:17 | disposition home or self-care (01) | DRG 391 ==
LOC: 3BNU
PROVIDERS: ADMIT Surgery; ATTEND Surgery

== ENCOUNTER 2022-06-17 09:41 | Inpatient (IN) ==
[2022-06-17] MEDS ORDERED: Iopamidol - 370 500 ML MLS IVP ONE (10:06)
[2022-06-17] MEDS ORDERED: Ondansetron 4 MG/2 ML VIAL IVP ONE (10:10)
[2022-06-17] MEDS ORDERED: 0.9 % Sodium Chloride 500 ML IVC ONE (10:10)
[2022-06-17] MEDS ORDERED: Morphine Sulfate 2 MG/ML SYRINGE IVP STA ×2 (10:12→13:38)
[2022-06-17] MEDS ORDERED: Nitroglycerin 0.4 MG TAB.SUBL SL STA (10:27)
[2022-06-17 10:50] LABS: Albumin 4.1 g/dL (3.5-5.7); Albumin/Globulin Ratio 1.3 (1.1-2.2); Bilirubin,Direct 0.2 mg/dL (0.0-0.2); Bilirubin,Indirect 1.2 mg/dL (0.0-1.0); Bilirubin,Total 1.4 mg/dL (0.3-1.0); Calcium 10.2 mg/dL (8.6-10.3); Globulin 3.2 g/dL (2.4-3.5); Potassium 3.2 mEq/L (3.5-5.1); Total Protein 7.3 g/dL (6.4-8.9); Troponin I 1.29 ng/mL (< 0.04)
[2022-06-17 11:20] LABS: Basophils % 0.1 %; Eosinophils % 0.1 %; Hematocrit 44.2 % (35.3-44.9); Hemoglobin 15.4 g/dL (11.5-15.4); Immature Granulocytes % 0.3 % (0-4); Lymphocytes # 1.3 K/mcL (0.6-4.6); Lymphocytes % 7.3 %; Mean Corpuscular HGB Conc 34.8 g/dL (31.6-35.5); Mean Corpuscular Hemoglobin 30.3 pg (28.0-33.3); Mean Corpuscular Volume 86.8 fL (83.0-100.0); Mean Platelet Volume 10.4 fL (9.4-12.4); Monocytes % 5.6 %; Neutrophils # 15.7 K/mcL (1.6-8.9); Platelet Count 395 K/mcL (140-400); Red Blood Count 5.09 M/mcL (3.82-4.97); Red Cell Distribution Width 14.4 % (11.5-14.5); Segmented Neutrophils % 86.6 %; White Blood Count 18.1 K/mcL (4.3-11.1)
[2022-06-17 13:14] LABS: Bilirubin,Urine Small (Negative); Blood,Urine Large (Negative); Budding Yeast,Urine Few per hpf (None Seen); Clarity,Urine Clear (Clear); Color,Urine Light-Orange (Yellow); Glucose,Urine (UA) 30 mg/dL (Normal); Hyaline Casts,Urine Few per lpf (None Seen); Ketones,Urine 20 mg/dL (Negative); Leukocyte Esterase,Urine Negative (Negative); Mucus,Urine Few per lpf (None-Few); Nitrite,Urine Negative (Negative); PH,Urine 6.5 pH Units (5.0-8.0); Protein,Urine >=600 mg/dL (Neg-Trace); Specific Gravity,Urine > 1.030 (1.010-1.025); Squamous Epithelial Cell,Urine Moderate per hpf (None-Few); Urobilinogen,Urine Normal (Normal)
[2022-06-17] MEDS ORDERED: Azithromycin 500 MG in D5% in Water 250 ML IVPB ONE (15:13)
[2022-06-17] MEDS ORDERED: cefTRIAXone 1,000 MG in 0.9 % Sodium Chloride Mini Bag 100 ML IVPB STA (15:13)
[2022-06-17] MEDS ORDERED: Melatonin 3 MG TABLET PO PRN (15:52)
[2022-06-17] MEDS ORDERED: Naloxone 0.4 MG/ML INJ IVP PRN (15:52)
[2022-06-17] MEDS ORDERED: Nicotine 2 MG GUM BC PRN (15:55)
[2022-06-17] MEDS ORDERED: Aspirin 81 MG TAB.CHEW PO ONE (15:56)
[2022-06-17] MEDS: Gabapentin 300 MG CAPSULE PO SCH (21:11)
[2022-06-17] MEDS: *HR* OxyCODONE Immed Rel 5 MG TABLET PO PRN (21:12)
[2022-06-17] MEDS: Famotidine 20 MG TABLET PO SCH (21:13)
[2022-06-17] MEDS: traZODone 50 MG TABLET PO SCH (21:13)
[2022-06-17] MEDS: Sucralfate 1 GM TABLET PO SCH (21:14)
[2022-06-17] MEDS: Ondansetron 4 MG/2 ML VIAL IVP PRN (21:29)
[2022-06-17] MEDS: Budesonide/Formoterol 160/4.5 1 PUFF INH IH SCH (21:59)
[2022-06-18] MEDS: *HR* OxyCODONE Immed Rel 5 MG TABLET PO PRN ×4 (03:39→20:58)
[2022-06-18] MEDS: Ondansetron ODT 4 MG TAB.RAPDIS PO PRN ×3 (03:40→20:58)
[2022-06-18 04:44] LABS: Hematocrit 36.1 % (35.3-44.9); Mean Corpuscular HGB Conc 33.5 g/dL (31.6-35.5); Mean Corpuscular Volume 89.4 fL (83.0-100.0); Mean Platelet Volume 9.7 fL (9.4-12.4); Platelet Count 256 K/mcL (140-400); Red Blood Count 4.04 M/mcL (3.82-4.97); Red Cell Distribution Width 14.2 % (11.5-14.5)
[2022-06-18 04:45] LABS: Hemoglobin 12.1 g/dL (11.5-15.4); White Blood Count 8.6 K/mcL (4.3-11.1)
[2022-06-18 05:01] LABS: INR 1.1; Prothrombin Time 12.4 Seconds (9.4-12.1)
[2022-06-18 05:36] LABS: Albumin 3.2 g/dL (3.5-5.7); Albumin/Globulin Ratio 1.4 (1.1-2.2); Bilirubin,Total 0.7 mg/dL (0.3-1.0); Calcium 8.7 mg/dL (8.6-10.3); Globulin 2.3 g/dL (2.4-3.5); Magnesium 1.7 mg/dL (1.6-2.6); Phosphorous 2.8 mg/dL (2.7-4.5); Potassium 2.9 mEq/L (3.5-5.1); Total Protein 5.5 g/dL (6.4-8.9); Troponin I 0.53 ng/mL (< 0.04)
[2022-06-18] MEDS ORDERED: *HR* Enoxaparin 40 MG/0.4 ML SYRINGE SQ SCH (06:00)
[2022-06-18] MEDS: Nicotine 14 MG PATCH.TD24 TD SCH ×2 (06:45→08:10)
[2022-06-18] MEDS ORDERED: Tiotropium 10 INH DOSE IH ONE (07:36)
[2022-06-18] MEDS: cefTRIAXone 1,000 MG in Water for inj. (sterile) 10 ML IVP SCH (08:06)
[2022-06-18] MEDS: Gabapentin 300 MG CAPSULE PO SCH ×3 (08:07→20:57)
[2022-06-18] MEDS: BuPROPion XL (24 HR) 150 MG TABLET PO SCH (08:08)
[2022-06-18] MEDS: Aspirin 81 MG TAB.CHEW PO SCH (08:08)
[2022-06-18] MEDS: Sucralfate 1 GM TABLET PO SCH ×4 (08:08→20:57)
[2022-06-18] MEDS: Ondansetron 4 MG/2 ML VIAL IVP PRN ×2 (08:53→16:31)
[2022-06-18] MEDS ORDERED: Prochlorperazine 10 MG/2 ML VIAL IM PRN (10:32)
[2022-06-18] MEDS ORDERED: *HR* LORazepam 2 MG/ML VIAL IVP ONE (10:32)
[2022-06-18] MEDS: Tiotropium 10 INH DOSE IH SCH (11:11)
[2022-06-18] MEDS: Budesonide/Formoterol 160/4.5 1 PUFF INH IH SCH ×2 (11:11→22:37)
[2022-06-18] MEDS ORDERED: *HR* Heparin 5,000 UNIT/ML VIAL IVP PRN ×2 (18:00)
[2022-06-18] MEDS ORDERED: *HR* Heparin 5,000 UNIT/ML VIAL IVP ONE (18:00)
[2022-06-18] MEDS: Heparin 25,000UNIT/250ML 1/2NS 25,000 UNIT/250 ML IV.SOLN IVC SCH (18:08)
[2022-06-18 19:05] LABS: Hematocrit 36.2 % (35.3-44.9); Hemoglobin 12.2 g/dL (11.5-15.4); Mean Corpuscular HGB Conc 33.7 g/dL (31.6-35.5); Mean Corpuscular Hemoglobin 29.8 pg (28.0-33.3); Mean Corpuscular Volume 88.3 fL (83.0-100.0); Mean Platelet Volume 9.7 fL (9.4-12.4); Platelet Count 279 K/mcL (140-400); White Blood Count 7.9 K/mcL (4.3-11.1)
[2022-06-18 19:19] LABS: Heparin anti-factor XA UFH 0.07 IU/mL (0.30-0.70)
[2022-06-18 19:20] LABS: INR 1.1; Prothrombin Time 11.7 Seconds (9.4-12.1)
[2022-06-18] MEDS: traZODone 50 MG TABLET PO SCH (20:57)
[2022-06-18] MEDS: Famotidine 20 MG TABLET PO SCH (20:58)
[2022-06-19] MEDS: *HR* OxyCODONE Immed Rel 5 MG TABLET PO PRN ×4 (03:59→19:43)
[2022-06-19 04:36] LABS: Hematocrit 37.3 % (35.3-44.9); Hemoglobin 12.3 g/dL (11.5-15.4); Mean Corpuscular Hemoglobin 29.9 pg (28.0-33.3); Mean Corpuscular Volume 90.5 fL (83.0-100.0); Mean Platelet Volume 9.7 fL (9.4-12.4); Platelet Count 287 K/mcL (140-400); Red Blood Count 4.12 M/mcL (3.82-4.97); Red Cell Distribution Width 14.2 % (11.5-14.5); White Blood Count 6.1 K/mcL (4.3-11.1)
[2022-06-19 04:55] LABS: Albumin 3.5 g/dL (3.5-5.7); Albumin/Globulin Ratio 1.5 (1.1-2.2); Bilirubin,Direct 0.1 mg/dL (0.0-0.2); Bilirubin,Indirect 0.5 mg/dL (0.0-1.0); Bilirubin,Total 0.6 mg/dL (0.3-1.0); Calcium 8.9 mg/dL (8.6-10.3); Globulin 2.3 g/dL (2.4-3.5); Magnesium 2.2 mg/dL (1.6-2.6); Potassium 2.9 mEq/L (3.5-5.1); Total Protein 5.8 g/dL (6.4-8.9)
[2022-06-19] MEDS: Ondansetron ODT 4 MG TAB.RAPDIS PO PRN (05:07)
[2022-06-19] MEDS: Sucralfate 1 GM TABLET PO SCH ×4 (08:07→19:58)
[2022-06-19] MEDS: Gabapentin 300 MG CAPSULE PO SCH ×3 (08:08→19:55)
[2022-06-19] MEDS: BuPROPion XL (24 HR) 150 MG TABLET PO SCH (08:08)
[2022-06-19] MEDS: cefTRIAXone 1,000 MG in Water for inj. (sterile) 10 ML IVP SCH (08:09)
[2022-06-19] MEDS: Aspirin 81 MG TAB.CHEW PO SCH (08:09)
[2022-06-19] MEDS: Nicotine 14 MG PATCH.TD24 TD SCH (08:10)
[2022-06-19] MEDS: Metoprolol XL (24 HR) Succ 25 MG TAB.ER.24H PO SCH (08:11)
[2022-06-19] MEDS: Ondansetron 4 MG/2 ML VIAL IVP PRN ×2 (09:38→15:37)
[2022-06-19] MEDS ORDERED: Potassium Chloride Elixir 20 MEQ/15 ML UDC PO ONE (09:58)
[2022-06-19] MEDS: Tiotropium 10 INH DOSE IH SCH (10:29)
[2022-06-19] MEDS: Budesonide/Formoterol 160/4.5 1 PUFF INH IH SCH ×2 (10:30→20:22)
[2022-06-19] MEDS: traZODone 50 MG TABLET PO SCH (19:50)
[2022-06-19] MEDS: Famotidine 20 MG TABLET PO SCH (19:59)
[2022-06-20 04:13] LABS: Hematocrit 31.9 % (35.3-44.9); Hemoglobin 10.3 g/dL (11.5-15.4); Mean Corpuscular HGB Conc 32.3 g/dL (31.6-35.5); Mean Corpuscular Hemoglobin 29.8 pg (28.0-33.3); Mean Corpuscular Volume 92.2 fL (83.0-100.0); Mean Platelet Volume 9.6 fL (9.4-12.4); Platelet Count 240 K/mcL (140-400); Red Blood Count 3.46 M/mcL (3.82-4.97); Red Cell Distribution Width 14.2 % (11.5-14.5)
[2022-06-20 04:32] LABS: Calcium 8.4 mg/dL (8.6-10.3); Potassium 3.3 mEq/L (3.5-5.1)
[2022-06-20] MEDS: Heparin 25,000UNIT/250ML 1/2NS 25,000 UNIT/250 ML IV.SOLN IVC SCH (05:20)
[2022-06-20] MEDS: *HR* OxyCODONE Immed Rel 5 MG TABLET PO PRN (05:25)
[2022-06-20] MEDS: Ondansetron ODT 4 MG TAB.RAPDIS PO PRN ×2 (05:25→20:03)
[2022-06-20] MEDS: Tiotropium 10 INH DOSE IH SCH (07:25)
[2022-06-20] MEDS: Budesonide/Formoterol 160/4.5 1 PUFF INH IH SCH ×2 (07:25→22:29)
[2022-06-20] MEDS: cefTRIAXone 1,000 MG in Water for inj. (sterile) 10 ML IVP SCH (08:47)
[2022-06-20] MEDS: Gabapentin 300 MG CAPSULE PO SCH ×3 (08:49→20:00)
[2022-06-20] MEDS: BuPROPion XL (24 HR) 150 MG TABLET PO SCH (08:49)
[2022-06-20] MEDS: Metoprolol XL (24 HR) Succ 25 MG TAB.ER.24H PO SCH (08:50)
[2022-06-20] MEDS: Sucralfate 1 GM TABLET PO SCH ×4 (08:51→19:59)
[2022-06-20] MEDS: Aspirin 81 MG TAB.CHEW PO SCH (08:51)
[2022-06-20] MEDS: Nicotine 14 MG PATCH.TD24 TD SCH (08:51)
[2022-06-20 09:12] LABS: Basophils % 0.3 %; Eosinophils # 0.1 K/mcL (0.0-0.6); Hematocrit 36.6 % (35.3-44.9); Hemoglobin 11.9 g/dL (11.5-15.4); Immature Granulocytes % 0.3 % (0-4); Lymphocytes # 1.8 K/mcL (0.6-4.6); Lymphocytes % 29.4 %; Mean Corpuscular HGB Conc 32.5 g/dL (31.6-35.5); Mean Corpuscular Hemoglobin 30.1 pg (28.0-33.3); Mean Corpuscular Volume 92.4 fL (83.0-100.0); Mean Platelet Volume 9.7 fL (9.4-12.4); Monocytes # 0.4 K/mcL (0.0-1.3); Monocytes % 5.9 %; Neutrophils # 3.9 K/mcL (1.6-8.9); Platelet Count 319 K/mcL (140-400); Red Blood Count 3.96 M/mcL (3.82-4.97); Red Cell Distribution Width 14.4 % (11.5-14.5); Segmented Neutrophils % 63.1 %; White Blood Count 6.1 K/mcL (4.3-11.1)
[2022-06-20] MEDS ORDERED: *HR* Heparin 10,000 UNIT/10 ML VIAL ONE (11:03)
[2022-06-20] MEDS ORDERED: Nitroglycerin 1,000 MCG/5 ML VIAL IV ONE (11:04)
[2022-06-20] MEDS ORDERED: Heparin 1,000 UNITS/500 mL 500 ML ONE (11:04)
[2022-06-20] MEDS ORDERED: 0.9 % Sodium Chloride 2,000 ML ONE (11:04)
[2022-06-20] MEDS ORDERED: Iopamidol - 370 200 ML INFUS..BTL ONE (11:04)
[2022-06-20] MEDS ORDERED: *HR* FentaNYL (PF) 100 MCG/2 ML VIAL ONE (11:32)
[2022-06-20] MEDS ORDERED: *HR* Midazolam HCl 2 MG/2 ML VIAL ONE (11:32)
[2022-06-20] MEDS ORDERED: Fluconazole 150 MG TABLET PO ONE ×2 (12:02→16:00)
[2022-06-20] MEDS: Nystatin Cream 15 GM TUBE TP SCH ×2 (18:37→20:00)
[2022-06-20] MEDS: traZODone 50 MG TABLET PO SCH (19:59)
[2022-06-20] MEDS: Acetaminophen 325 MG TABLET PO PRN (19:59)
[2022-06-20] MEDS: Famotidine 20 MG TABLET PO SCH (20:00)
[2022-06-20] MEDS ORDERED: 0.9 % Sodium Chloride 1,000 ML IVC ONE ×2 (20:07→20:17)
[2022-06-20 23:31] LABS: Hematocrit 29.5 % (35.3-44.9)
[2022-06-20 23:32] LABS: Hemoglobin 9.6 g/dL (11.5-15.4)
[2022-06-21] MEDS ORDERED: 0.9 % Sodium Chloride 250 ML IVC SCH (01:30)
[2022-06-21] MEDS: Acetaminophen 325 MG TABLET PO PRN (03:17)
[2022-06-21] MEDS: Ondansetron ODT 4 MG TAB.RAPDIS PO PRN (03:18)
[2022-06-21 03:27] LABS: Calcium 8.2 mg/dL (8.6-10.3); Potassium 3.3 mEq/L (3.5-5.1)
[2022-06-21] MEDS: Tiotropium 10 INH DOSE IH SCH (07:51)
[2022-06-21] MEDS: Budesonide/Formoterol 160/4.5 1 PUFF INH IH SCH (07:51)
[2022-06-21 08:17] VITALS: BP 111/61; PULSE 74; TEMP 98; O2SAT 97
[2022-06-21] MEDS: cefTRIAXone 1,000 MG in Water for inj. (sterile) 10 ML IVP SCH (08:22)
[2022-06-21] MEDS: Gabapentin 300 MG CAPSULE PO SCH (08:24)
[2022-06-21] MEDS: BuPROPion XL (24 HR) 150 MG TABLET PO SCH (08:24)
[2022-06-21] MEDS: Aspirin 81 MG TAB.CHEW PO SCH (08:24)
[2022-06-21] MEDS: Metoprolol XL (24 HR) Succ 25 MG TAB.ER.24H PO SCH (08:24)
[2022-06-21] MEDS: Nicotine 14 MG PATCH.TD24 TD SCH (08:25)
[2022-06-21] MEDS: Nystatin Cream 15 GM TUBE TP SCH (08:25)
[2022-06-21] MEDS: Sucralfate 1 GM TABLET PO SCH (08:25)
[2022-06-21] MEDS: *HR* OxyCODONE Immed Rel 5 MG TABLET PO PRN (08:29)
== END 2022-06-21 11:21 | disposition home or self-care (01) | DRG 871 ==
LOC: EMEROOARM 09:41 → 2NENU 09:41 → SUATTDRO 17:04 → 3ANU 17:23
PROVIDERS: ADMIT Internal Medicine; ATTEND Internal Medicine